=== PATIENT | male | born 1970 | race Caucasian/White ===

== ENCOUNTER → 2020-10-16 10:06 | Outpatient (CLI) | payer OTHER, SELFPAY ==
--- NOTE | 2020-10-16 11:03 | DI.CT.S_ITS ---
PROCEDURE: CT ABDOMEN PELVIS W CON INDICATIONS: diarrhea TECHNIQUE: After the administration of oral and intravenous contrast, 5 mm thick sections acquired from the diaphragms to the symphysis. 5 mm thick coronal and sagittal reformats were performed. For radiation dose reduction, the following was used: automated exposure control, adjustment of mA and/or kV according to patient size. COMPARISON: None. FINDINGS: Image quality: Excellent. ABDOMEN: Lung bases: Lung bases are clear. Heart size is normal. Solid organs: Liver is normal in size and enhancement. Gallbladder is grossly unremarkable. Biliary system is non-dilated. Pancreas enhances normally. There is mild distension of the pancreatic duct measuring 4 mm diameter within the pancreatic body. Spleen is normal in size and enhancement. No adrenal nodules. Kidneys are normal in size and enhancement, without hydronephrosis. Peritoneum and bowel: Stomach, small bowel, and colon loops are normal in caliber and wall thickness. No free fluid or air. Normal appendix. Nodes and vessels: No retroperitoneal or mesenteric adenopathy. Aorta and inferior vena cava are normal in caliber. Miscellaneous: No ventral hernias. PELVIS: Genitourinary: Bladder wall thickness is normal. Miscellaneous: No inguinal hernias or adenopathy. Bones: No suspicious bony lesions. No vertebral body compression fractures. IMPRESSION: 1. No acute process. 2. Normal appendix. 3. Mild dilatation of the pancreatic duct. This could be further assessed with ERCP, if clinically indicated. Dictated by: Jeffery Middleton M.D. on 10/16/2020 at 11:26 Approved by: Jeffery Middleton M.D. on 10/16/2020 at 11:28
== END ==
PROVIDERS: PCP Registered Nurse; Referring Provider Registered Nurse; Visit Provider Registered Nurse
DX: R19.7 Diarrhea, unspecified (principal); K86.89 Other specified diseases of pancreas
CPT/HCPCS: 74177; Q9967